=== PATIENT | male | born 1960 | race Native Hawaiian/Other Pacific Islander ===

== ENCOUNTER 2020-12-18 15:29 | Outpatient (CLI) | payer OTHER | END 2020-12-18 21:16 | disposition home or self-care (01) | LOC: INF 15:29 | PROVIDERS: ATTEND Internal Medicine | DX: Z23 Encounter for immunization (principal) | CPT/HCPCS: 96372 ==

== ENCOUNTER 2021-01-14 15:08 | Outpatient (CLI) | payer OTHER | END 2021-01-14 21:34 | disposition home or self-care (01) | LOC: INF 15:08 | PROVIDERS: ATTEND Internal Medicine | DX: Z23 Encounter for immunization (principal) | CPT/HCPCS: 96372 ==

== ENCOUNTER 2021-08-20 09:10 | Outpatient (CLI) | payer OTHER | END 2021-08-20 17:00 | disposition home or self-care (01) | LOC: INF 09:10 | PROVIDERS: ATTEND Internal Medicine | DX: Z23 Encounter for immunization (principal) | CPT/HCPCS: 0004A ==

== ENCOUNTER 2022-10-16 16:33 | Emergency (ER) | payer OTHER ==
[~2022-10-16] VITALS: Ht 182.9 cm; Wt 86.2 kg
[2022-10-16 16:33] VITALS: TEMP 98.6
[2022-10-16 17:10] LABS: PLATELET COUNT 185 K/uL (142-355)
[2022-10-16 17:20] LABS: POTASSIUM 4.7 mmol/L (3.6-5.2)
[2022-10-16 17:27] LABS: PARTIAL THROMBOPLASTIN TIME 23.4 SECONDS (24.5-33.6)
[2022-10-16 21:31] VITALS: BP 135/82
== END 2022-10-16 21:34 | disposition home or self-care (01) ==
LOC: ED 16:33
PROVIDERS: Internal Medicine
DX: M19.012 Primary osteoarthritis, left shoulder (principal)
CPT/HCPCS: 36415; 80053; 82550; 84484; 85027; 85610; 85730; 93005; 99284

== ENCOUNTER 2023-01-04 19:28 | Emergency (ER) | payer OTHER ==
[~2023-01-04] VITALS: Ht 182.9 cm; Wt 86.2 kg
[2023-01-04 21:00] VITALS: BP 171/84; TEMP 97.7
== END 2023-01-04 21:00 | disposition home or self-care (01) ==
LOC: ED 19:28
PROC: 0HCGXZZ Extirpation of Matter from Left Hand Skin, External Approach (ICD-10-PCS; principal; 2023-01-04)
PROC: 0HQGXZZ Repair Left Hand Skin, External Approach (ICD-10-PCS; 2023-01-04)
DX: S61.442A Puncture wound with foreign body of left hand, initial encounter (principal); S60.512A Abrasion of left hand, initial encounter; W45.8XXA Other foreign body or object entering through skin, initial encounter; Y92.89 Other specified places as the place of occurrence of the external cause
CPT/HCPCS: 90471; 90715; 99283; J2001

== ENCOUNTER 2023-01-11 17:39 | Emergency (ER) | payer OTHER ==
[~2023-01-11] VITALS: Ht 182.9 cm; Wt 81.6 kg
[2023-01-11 18:03] VITALS: BP 168/87; TEMP 98
== END 2023-01-11 18:40 | disposition home or self-care (01) ==
LOC: ED 17:39
DX: Z48.02 Encounter for removal of sutures (principal)